=== PATIENT | female | born 1975 | race American Indian/Alaskan Native ===

== ENCOUNTER 2017-09-23 18:25 | Emergency (ER) | payer MEDICAID, OTHER ==
[~2017-09-23] VITALS: Ht 165.1 cm; Wt 65.0 kg
[~2017-09-23 18:25] MED LIST: RANI150T8 PO
[2017-09-23] MEDS ORDERED: SODIUM CHLORIDE FLUSH 10ML SYR IVF ONE (19:00)
[2017-09-23] MEDS ORDERED: ONDANSETRON 2MG/ML, 2ML IVPush ONE (19:00)
[2017-09-23] MEDS ORDERED: SODIUM CHLORIDE 0.9% 1,000ML IVBOLUS ONE (19:00)
[2017-09-23] MEDS ORDERED: ONDANSETRON 2MG/ML, 2ML ONE (19:04)
[2017-09-23 19:39] LABS: HEMATOCRIT 36.8 % (34.6-47.8); HEMOGLOBIN 11.9 g/dL (11.7-16.4); WHITE BLOOD COUNT 8.7 x10^3/uL (3.4-10)
[2017-09-23 19:51] LABS: ASPARTATE AMINO TRANSFERASE 30 U/L (15-37); BLOOD UREA NITROGEN 20 mg/dL (7-18)
[2017-09-23 20:47] VITALS: BP 92/52
== END 2017-09-23 21:19 | disposition home or self-care (01) ==
LOC: ED 21:07
DX: R11.2 Nausea with vomiting, unspecified (principal); R30.0 Dysuria; Z87.19 Personal history of other diseases of the digestive system
CPT/HCPCS: 36415; 80053; 81001; 83690; 84703; 85025; 87086; 96361; 96374; 99284; J2405; J7030

== ENCOUNTER 2021-03-01 09:48 | Emergency (ER) | payer MEDICAID ==
[~2021-03-01] VITALS: Ht 165.1 cm; Wt 74.2 kg
[~2021-03-01 09:48] MED LIST changes: +RANI-467 PO; -RANI150T8 PO
[2021-03-01] MEDS ORDERED: ONDANSETRON ODT 4 MG ONE ×2 (09:57→12:25)
[2021-03-01] MEDS ORDERED: ONDANSETRON ODT 4 MG PO ONE ×2 (10:30→12:30)
[2021-03-01 10:51] LABS: BASOPHILS % (AUTO) 0 % (0-1); EOSINOPHILS % (AUTO) 1 % (1-7); LYMPHOCYTES % (AUTO) 3 % (22-44); MEAN CORPUSCULAR HEMOGLOBIN 28.3 pg (27.0-34.8); MEAN CORPUSCULAR HGB CONC 33.3 g/dL (32.4-35.8); MEAN PLATELET VOLUME 7.6 fL (7.4-10.4); MONOCYTES % (AUTO) 4 % (2-9); NEUTROPHILS % (AUTO) 93 % (42-75); PLATELET COUNT 222 x10^3/uL (130-400); RED BLOOD COUNT 4.87 x10^6/uL (3.82-5.3); RED CELL DISTRIBUTION WIDTH 14.7 % (9.6-15.2)
[2021-03-01 11:03] LABS: ALANINE AMINOTRANSFERASE 129 U/L (12-78); ALBUMIN 3.5 g/dL (3.4-5.0); CALCIUM 8.2 mg/dL (8.5-10.1); CHLORIDE 108 mmol/L (98-107); CREATININE 0.82 mg/dL (0.55-1.02)
[2021-03-01 11:08] LABS: ALKALINE PHOSPHATASE 130 U/L (45-117); BILIRUBIN,TOTAL 0.9 mg/dL (0.2-1.0); TOTAL PROTEIN 8.3 g/dL (6.4-8.2)
[2021-03-01 11:19] LABS: MD SCAN
[2021-03-01 11:22] LABS: ANION GAP 7 mmol/L (5-15)
--- NOTE | 2021-03-01 11:38 | NUR ---
OVERCOIL STEPPER: PT TO ROOM FROM LOBBY
--- NOTE | 2021-03-01 11:55 | NUR ---
at bedside for exam. Pt must have just arrived to room from lobby as room was just empty 3 minutes ago when this RN walked past.
--- NOTE | 2021-03-01 12:04 | NUR ---
Report to meal break RN and care transferred.
--- NOTE | 2021-03-01 12:18 | NUR ---
FLOAT RN AT BEDSIDE TO RELIEVE PRIMARY RN FOR LUNCH. PT DENIES ABILITY TO VOID FOR URINE SPECIMEN AT THIS TIME. US AT BEDSIDE. PT TOLERATING WELL.
--- NOTE | 2021-03-01 12:30 | NUR ---
PT REPORTED FEELING NAUSEATED DURING EXAM. MD MADE AWARE, MEDICATIONS ADMINSTERED PER EMAR. PT AMBULATORY TO RESTROOM AT THIS TIME IN AN ATTEMPT TO PROVIDE UA.
--- NOTE | 2021-03-01 12:35 | NUR ---
Report recieved from meal break RN and care reassumed. Pt given Zofran for nausea while this RN on break and UA sample obtained and sent to lab per RN report. Pt appears to be resting comfortably in room at [facility].
[2021-03-01 13:07] LABS: MICROSCOPIC AUTO
[2021-03-01] MEDS ORDERED: METOCLOPRAMIDE 5 MG/ML, 2ML ONE (13:42)
--- NOTE | 2021-03-01 13:57 | NUR ---
Pt given IM injection with aseptic technique for nausea prior to leaving dept for home. Pt tolerated with mild c/o pain during injection only. 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 [employer]esis bags for the road also provided.
[2021-03-01] MEDS ORDERED: METOCLOPRAMIDE 5 MG/ML, 2ML IM ONE (14:00)
--- NOTE | 2021-03-01 14:04 | NUR ---
Pt states minimal effect noted since bilingual medical receptionist but assured it will start taking effect shortly and to get prescription filled [facility] and take as directed. Pt ambulatory out of dept.
[2021-03-01 14:11] VITALS: BP 131/74
== END 2021-03-01 14:13 | disposition home or self-care (01) ==
LOC: ED 11:05
DX: N30.00 Acute cystitis without hematuria (principal); R11.2 Nausea with vomiting, unspecified; R94.5 Abnormal results of liver function studies; F17.200 Nicotine dependence, unspecified, uncomplicated; Z90.49 Acquired absence of other specified parts of digestive tract
CPT/HCPCS: 36415; 74022; 76700; 80053; 80074; 81001; 83690; 84703; 85025; 87077; 87086; 96372; 99285; J2765; Q0162; 87186